=== PATIENT | female | born 1995 | race Asian ===

== ENCOUNTER 2022-03-17 10:48 | Emergency (ER) | payer OTHER ==
[2022-03-17 10:56] VITALS: BP 113/56; PULSE 104; RESP 20; TEMP 97.9; BMI 21.6
[2022-03-17 12:13] LABS: BASO % 0.5 % (0-2.0); EOS % 1.2 % (0-4.5); HCG,QUALITATIVE URINE Positive; HEMATOCRIT 37.9 % (32.4-45.2); HEMOGLOBIN 12.1 GM/dL (10.7-15.3); LYMPH % 28.7 % (8-40); MCHC 31.8 g/dl (32.0-36.0); MEAN CELL VOLUME 72.2 fl (80-96); MEAN PLT VOLUME 9.2 fl (7.5-11.1); MONO % 6.5 % (3.8-10.2); NEUT % 63.1 % (42.8-82.8); PLATELET COUNT 249 10^3/uL (134-434); RBC 5.25 M/mm3 (3.60-5.2); RDW 15.1 % (11.6-15.6); WHITE BLOOD COUNT 6.8 K/mm3 (4.0-10.0)
[2022-03-17 12:16] LABS: EPI CELLS 24 /uL (0-25.1); HYALINE CASTS 3 /uL (0-3.1); PH,URINE 5.5 (5.0-8.0); URINE APPEARANCE CLOUDY; URINE BACTERIA 1525 /uL (0-1359); URINE BILIRUBIN NEGATIVE (NEGATIVE); URINE COLOR YELLOW; URINE GLUCOSE (UA) NEGATIVE (NEGATIVE); URINE KETONE TRACE (NEGATIVE); URINE LEUK ESTERASE 3+ (NEGATIVE); URINE NITRITE NEGATIVE (NEGATIVE); URINE PROTEIN TRACE (NEGATIVE); URINE UROBILINOGEN 0.2 mg/dL (0.2-1.0); URINE WBC 1831 /uL (0-25.8)
[2022-03-17 12:21] LABS: URINE RBC 51 /uL (0-23.9)
[2022-03-17 12:59] LABS: CALCIUM 9.4 mg/dL (8.5-10.1)
[2022-03-17 13:00] LABS: BLOOD UREA NITROGEN 9.2 mg/dL (7-18)
[2022-03-17 13:04] LABS: CREATININE 0.7 mg/dL (0.55-1.3)
== END 2022-03-17 16:34 | disposition home or self-care (01) ==
LOC: JER 10:48 → JERFT 10:48
DX: O23.41 Unspecified infection of urinary tract in pregnancy, first trimester (principal); Z3A.01 Less than 8 weeks gestation of pregnancy
CPT/HCPCS: 36415; 76817-TC; 80048; 81003; 84702; 84703; 85025; 86850; 86900; 86901; 87070; 87077; 87086; 87186; 87205; 99284-25

== ENCOUNTER 2022-10-31 05:25 | Inpatient (IN) | payer OTHER ==
[2022-10-31] MEDS ORDERED: CITRIC ACID/SODIUM CITRATE 30 ML UNIT-DOSE CUP PO ONE (06:45)
[2022-10-31] MEDS ORDERED: ELECTROLYTE-148 SOLN 500 ML IV SCH ×2 (06:45→07:15)
[2022-10-31 07:49] VITALS: BMI 24.8
[2022-10-31] MEDS ORDERED: ACETAMINOPHEN 325 MG TABLET (FP) PO PRN ×3 (07:55→09:50)
[2022-10-31] MEDS ORDERED: METHYLERGONOVINE MALEATE 0.2 MG/1 ML AMP IM PRN (07:55)
[2022-10-31] MEDS ORDERED: ELECTROLYTE-148 SOLN 1,000 ML IV SCH (08:00)
[2022-10-31 08:01] LABS: POTASSIUM 4.1 mmol/L (3.5-5.1)
[2022-10-31 08:02] LABS: CALCIUM 8.8 mg/dL (8.5-10.1)
[2022-10-31] MEDS ORDERED: FENTANYL CITRATE/PF 50 MCG/ML VIAL ONE (08:02)
[2022-10-31] MEDS ORDERED: morphine SULFATE/PF 1 MG/2 ML (2cc Syringe - QUVA) ONE (08:02)
[2022-10-31] MEDS ORDERED: SUCCINYLCHOLINE CHLORIDE 200 MG/10 ML SYRINGE ONE (08:02)
[2022-10-31 08:03] LABS: BLOOD UREA NITROGEN 8.3 mg/dL (7-18)
[2022-10-31 08:06] LABS: CREATININE 0.5 mg/dL (0.55-1.3)
[2022-10-31] MEDS ORDERED: ePHEDrine SULFATE 50 MG/1 ML AMPULE ONE (08:08)
[2022-10-31] MEDS ORDERED: ceFAZolin SODIUM 1 GM VIAL ONE (08:10)
[2022-10-31] MEDS ORDERED: PROPOFOL 20 ML ONE (08:11)
[2022-10-31 08:13] LABS: INR 0.97 (0.83-1.09); PROTHROMBIN TIME (PATIENT) 11.3 SEC (9.7-13.0)
[2022-10-31 08:16] LABS: ACTIVATED PTT 24.5 SECONDS (25.2-36.5)
[2022-10-31] MEDS ORDERED: OXYTOCIN 10 UNITS/ML VIAL ONE ×2 (08:34→08:58)
[2022-10-31] MEDS ORDERED: SODIUM CHLORIDE 0.9% P/F 10 ML VIAL IJ ONE (08:34)
[2022-10-31 08:36] LABS: BASO % 0.2 % (0-2.0); EOS % 0.8 % (0-4.5); HEMATOCRIT 37.3 % (32.4-45.2); HEMOGLOBIN 11.7 GM/dL (10.7-15.3); LYMPH % 20.8 % (8-40); MCH 24.2 pg (25.7-33.7); MCHC 31.3 g/dl (32.0-36.0); MEAN CELL VOLUME 77.4 fl (80-96); MEAN PLT VOLUME 9.3 fl (7.5-11.1); MONO % 6.6 % (3.8-10.2); NEUT % 71.6 % (42.8-82.8); PLATELET COUNT 147 10^3/uL (134-434); RBC 4.83 M/mm3 (3.60-5.2); RDW 13.8 % (11.6-15.6); WHITE BLOOD COUNT 8.4 K/mm3 (4.0-10.0)
[2022-10-31] MEDS ORDERED: KETOROLAC TROMETHAMINE 30 MG/1 ML VIAL ONE (08:58)
[2022-10-31] MEDS ORDERED: ONDANSETRON 4 MG/2 ML VIAL ONE (08:58)
[2022-10-31] MEDS ORDERED: DEXAMETHASONE SOD PHOSPHATE 4 MG/1 ML VIAL ONE (08:58)
[2022-10-31 09:15] LABS: CORD BASE EXCESS -3.1 mmol/L (0-2); CORD HCO3 23.9 mmHg (20-29); CORD PCO2 50.2 mmHg (30-78); CORD pH 7.295 (7.14-7.44)
[2022-10-31 09:20] LABS: CORD BASE EXCESS -4.3 mmol/L (0-2); CORD HCO3 21.3 mmHg (20-29); CORD PCO2 41.4 mmHg (30-78); CORD pH 7.33 (7.14-7.44)
[2022-10-31] MEDS ORDERED: morphine SULFATE/PF 1 MG/2 ML (2cc Syringe - QUVA) EP ONE (09:48)
[2022-10-31] MEDS ORDERED: ONDANSETRON 4 MG/2 ML VIAL IVPUSH PRN (09:48)
[2022-10-31] MEDS ORDERED: IBUPROFEN 600 MG TABLET (FP) PO PRN (09:48)
[2022-10-31] MEDS ORDERED: OXYTOCIN 20 UNITS in 0.9% NS 20 UNIT/1,000 ML INFUS.BAG IV ONE (10:15)
[2022-10-31] MEDS: OXYTOCIN 20 UNITS in 0.9% NS 20 UNIT/1,000 ML INFUS.BAG IV SCH ×2 (11:00→17:56)
[2022-10-31] MEDS: ACETAMINOPHEN 1000 MG/100 ML BAG IVPB PRN (17:54)
[2022-10-31] MEDS ORDERED: oxyCODONE HCL 5 MG TABLET PO PRN ×2 (19:56)
[2022-11-01] MEDS: SIMETHICONE 80 MG TAB.CHEW (FP) PO PRN ×4 (03:05→22:18)
[2022-11-01] MEDS: ACETAMINOPHEN 1000 MG/100 ML BAG IVPB PRN (03:06)
[2022-11-01] MEDS: IBUPROFEN 600 MG TABLET (FP) PO PRN ×3 (07:47→22:18)
[2022-11-01] MEDS ORDERED: BISACODYL 10 MG SUPP.RECT RC PRN (07:56)
[2022-11-01 08:07] LABS: BASO % 0.1 % (0-2.0); EOS % 0.6 % (0-4.5); HEMATOCRIT 35.1 % (32.4-45.2); HEMOGLOBIN 11.4 GM/dL (10.7-15.3); MCH 24.2 pg (25.7-33.7); MCHC 32.4 g/dl (32.0-36.0); MEAN CELL VOLUME 74.7 fl (80-96); MEAN PLT VOLUME 9.5 fl (7.5-11.1); MONO % 4.9 % (3.8-10.2); NEUT % 81.4 % (42.8-82.8); PLATELET COUNT 140 10^3/uL (134-434); RBC 4.71 M/mm3 (3.60-5.2); RDW 13.9 % (11.6-15.6); WHITE BLOOD COUNT 12.2 K/mm3 (4.0-10.0)
[2022-11-01 22:39] VITALS: RESP 18
[2022-11-02] MEDS: SIMETHICONE 80 MG TAB.CHEW (FP) PO PRN ×2 (05:20→23:15)
[2022-11-02] MEDS: IBUPROFEN 600 MG TABLET (FP) PO PRN ×4 (05:20→23:15)
[2022-11-03 07:16] LABS: BASO % 0.4 % (0-2.0); EOS % 1.3 % (0-4.5); HEMATOCRIT 36.1 % (32.4-45.2); HEMOGLOBIN 11.8 GM/dL (10.7-15.3); LYMPH % 16.4 % (8-40); MCH 25.3 pg (25.7-33.7); MCHC 32.7 g/dl (32.0-36.0); MEAN CELL VOLUME 77.4 fl (80-96); MEAN PLT VOLUME 9.9 fl (7.5-11.1); MONO % 5.5 % (3.8-10.2); NEUT % 76.4 % (42.8-82.8); PLATELET COUNT 164 10^3/uL (134-434); RBC 4.67 M/mm3 (3.60-5.2); WHITE BLOOD COUNT 9.7 K/mm3 (4.0-10.0)
[2022-11-03 09:31] VITALS: BP 101/62; PULSE 90; TEMP 98.8
== END 2022-11-03 11:55 | disposition home or self-care (01) | DRG 540 ==
LOC: JLDR 05:25 → J3W 12:30
PROVIDERS: ADMIT Obstetrics & Gynecology; ATTEND Obstetrics & Gynecology
PROC: 10D00Z1 Extraction of Products of Conception, Low, Open Approach (ICD-10-PCS; principal; 2022-10-31)
DX: O34.211 Maternal care for low transverse scar from previous cesarean delivery (principal); Z3A.39 39 weeks gestation of pregnancy; Z37.0 Single live birth
CPT/HCPCS: 36415; 36600; 80048; 82803; 85025; 85610; 85730; 86780; 86850; 86900; 86901; 94010